=== PATIENT | female | born 1995 | race Caucasian/White ===

== ENCOUNTER 2017-11-19 10:04 | Emergency (ER) | payer OTHER ==
--- NOTE | 2017-11-19 10:46 | ERPHSYRPT ---
- History of Present Illness Time Seen by Provider: 11/19/17 10:39 Source: patient Exam Limitations: no limitations Physician History: vaginal abcess spontaneously drained earlier today, mild ache, no vaginal bleeding, no NV, no fever, hx 5 months , no abdominal pain or contractions Allergies/Adverse Reactions: No Known Drug Allergies Allergy (Unverified 06/27/16 20:01) Hx Tetanus, Diphtheria Vaccination/Date Given: Yes Hx Influenza Vaccination/Date Given: No Hx Pneumococcal Vaccination/Date Given: No - Review of Systems Constitutional: No Fever Respiratory: No Dyspnea Abdominal/Gastrointestinal: No Abdominal Pain Musculoskeletal: No Injury Skin: No Rash Neurological: No Dizziness - Past Medical History Pertinent Past Medical History: No Other Medical History: MRSA skin - Past Surgical History Past Surgical History: No - Social History Smoking Status: Current every day smoker How long have you smoked: YRS Exposure to second hand smoke: No Drug Use: none Patient Lives Alone: No - Physical Exam General Appearance: no apparent distress Respiratory Exam: No respiratory distress Gastrointestinal/Abdomen Exam: soft, other (fht 140), No tenderness Pelvic Exam: normal external exam, other (no fluc mass or lesion, no blood), No vaginal discharge Extremity Exam: normal inspection, normal range of motion Neurologic Exam: alert, oriented x 3, cooperative - Course Nursing assessment & vital signs reviewed: Yes - Progress Progress: unchanged Progress Note: 11/19/17 10:47 continue care and vitamins, keflex, tylenol, sitz bathes Discussed with : Other (Dr Verdugo) Will see patient in: office - Departure Time of Disposition: 10:48 Departure Disposition: Home Clinical Impression: Abscess Condition: Stable Critical Care Time: No Referrals: APPLE CORBETT [Primary Care Provider] - Instructions: Wound Infection Prescriptions: Cephalexin Mh 500 mg [Keflex 500 mg] 1 cap PO QID #40 capsule
[2017-11-19 10:47] VITALS: O2SAT 100
[2017-11-19 10:56] VITALS: BP 118/76; PULSE 72
== END 2017-11-19 10:56 | disposition home or self-care (01) ==
LOC: ED 10:04
DX: O23.592 Infection of other part of genital tract in pregnancy, second trimester (principal)
CPT/HCPCS: 99283

== ENCOUNTER 2022-11-13 12:57 | Emergency (ER) | payer OTHER ==
[2022-11-13 13:11] VITALS: BP 123/74
--- NOTE | 2022-11-13 13:21 | ERPHSYRPT ---
- History of Present Illness Time Seen by Provider: 11/13/22 13:20 Historian: patient Exam Limitations: no limitations Patient Subjective Stated Complaint: pt here for abd pain to lower and and right upper quad since this am, with some nausea and chills Triage Nursing Assessment: pt alert, walked in, face mask in place, resp easy, skin w/d/p. no edema abd soft Physician History: Abdomninal pain for a few hours, already better, cramps, no fever or other specific sx. Prior amairani. Timing/Duration: today Activities at Onset: none Quality: cramping Abdominal Pain Onset Location: generalized abdomen Pain Radiation: no radiation Severity of Pain-Max: moderate Severity of Pain-Current: mild Modifying Factors: Improves With: nothing Associated Symptoms: denies symptoms Previous symptoms: no prior history Allergies/Adverse Reactions: Sulfa (Sulfonamide Antibiotics) Adverse Reaction (Unknown, Verified 11/13/22 13:08) Pt states her mother almost twice from Sulfa so she does not want to take a chance Home Medications: Venlafaxine HCl 37.5 mg [Effexor 37.5 mg] 37.5 mg PO DAILY 11/13/22 [History] Hx Tetanus, Diphtheria Vaccination/Date Given: Yes Hx Influenza Vaccination/Date Given: No Hx Pneumococcal Vaccination/Date Given: No Immunizations Up to Date: Yes Travel Risk - International Travel Have you traveled outside of the country in past 3 weeks: No - Coronavirus Screening Are you exhibiting any of the following symptoms?: No Close contact with a COVID-19 positive Pt in past 14-21 Days: No - Vaccine Status Have you recieved a Covid-19 vaccination: No - Review of Systems Constitutional: No Symptoms Eyes: No Symptoms Ears, Nose, & Throat: No Symptoms Respiratory: No Symptoms Cardiac: No Symptoms Abdominal/Gastrointestinal: Abdominal Pain Genitourinary Symptoms: No Symptoms Musculoskeletal: No Symptoms Skin: No Symptoms Neurological: No Symptoms Psychological: No Symptoms Endocrine: No Symptoms Hematologic/Lymphatic: No Symptoms Immunological/Allergic: No Symptoms All Other Systems: Reviewed and Negative - Past Medical History Pertinent Past Medical History: Yes Neurological History: No Pertinent History ENT History: No Pertinent History Cardiac History: No Pertinent History Respiratory History: Asthma Endocrine Medical History: No Pertinent History Musculoskeletal History: Fractures GI Medical History: GERD, Gallbladder Disease History: No Pertinent History Psycho-Social History: Depression Female Reproductive Disorders: No Pertinent History Other Medical History: fx bilat arms, nose; mono - Past Surgical History Past Surgical History: Yes Neuro Surgical History: No Pertinent History Cardiac: No Pertinent History Respiratory: No Pertinent History Gastrointestinal: Cholecystectomy Genitourinary: No Pertinent History Musculoskeletal: No Pertinent History Female Surgical History: Tubal Ligation - Social History Smoking Status: Former smoker How long have you smoked: YRS Exposure to second hand smoke: No Drug Use: none Patient Lives Alone: No - Female History Hx Last Menstrual Period: september Hx Now: No - Nursing Vital Signs Nursing Vital Signs: Initial Vital Signs Temperature 97.6 F 11/13/22 13:10 Pulse Rate 90 11/13/22 13:10 Respiratory Rate 18 11/13/22 13:10 Blood Pressure 123/74 11/13/22 13:10 O2 Sat by Pulse Oximetry 99 11/13/22 13:10 Pain Scale Pain Intensity 4 - Physical Exam General Appearance: mild distress Eye Exam: PERRL/EOMI Ears, Nose, Throat Exam: normal ENT inspection, TM abnormal (L) Neck Exam: normal inspection, non-tender Respiratory Exam: normal breath sounds Cardiovascular Exam: regular rate/rhythm, normal heart sounds Gastrointestinal/Abdomen Exam: soft, normal bowel sounds, tenderness (mild, generalized) Pelvic Exam: deferred Rectal Exam: deferred Back Exam: normal inspection Extremity Exam: normal inspection Neurologic Exam: alert, oriented x 3 Skin Exam: normal color, warm SpO2 Interpretation: normal SpO2: 99 O2 Delivery: Room Air - Course Nursing assessment & vital signs reviewed: Yes - CT Exams Abdomen/Pelvis CT Interpretation: Negative, Tele-radiologist Report Ordered Tests: Active Orders 24 hr Category Date Time Status ABDOMEN AND PELVIS W/0 CONTRAS [CT] Stat Exams 11/13/22 14:29 Completed AMYLASE Stat Lab 11/13/22 13:50 Completed CBC W DIFF Stat Lab 11/13/22 13:50 Completed CMP Stat Lab 11/13/22 13:50 Completed HCG QUALITATIVE, SERUM Stat Lab 11/13/22 13:50 Completed LIPASE Stat Lab 11/13/22 13:50 Completed UA W/RFX UR CULTURE Stat Lab 11/13/22 14:13 Completed Lab/Rad Data: Laboratory Result Diagrams 11/13/22 13:50 11/13/22 13:50 Laboratory Results 04/11/13/22 11/13/22 Range/Units 14:13 13:50 13:50 WBC (4.0-10.5) x10^3/uL RBC (4.1-5.4) x10^6/uL Hgb (12.0-16.0) g/dL Hct (35-47) % MCV (78-100) fL MCH (26-32) pg MCHC (32-36) g/dL RDW (11.5-14.0) % Plt Count (150-450) x10^3/uL MPV (7.5-11.0) fL Gran % (36.0-66.0) % Immature Gran % (Auto) (0.00-0.4) % Nucleat RBC Rel Count (0.00-0.1) % Eos # (Auto) (0-0.5) x10^3/uL Immature Gran # (Auto) (0.00-0.03) x10^3u/L Absolute Lymphs (auto) (1.0-4.6) x10^3/uL Absolute Monos (auto) (0.0-1.3) x10^3/uL Absolute Nucleated RBC (0.00-0.01) x10^3u/L Lymphocytes % (24.0-44.0) % Monocytes % (0.0-12.0) % Eosinophils % (0.00-5.0) % Basophils % (0.0-0.4) % Absolute Granulocytes (1.4-6.9) x10^3/uL Basophils # (0-0.4) x10^3/uL Sodium 138 (137-145) mmol/L Potassium 3.7 (3.5-5.1) mmol/L Chloride 105 (98-107) mmol/L Carbon Dioxide 27 (22-30) mmol/L Anion Gap 10.0 (5-15) MEQ/L BUN 11 (7-17) mg/dL Creatinine 0.58 (0.52-1.04) mg/dL Estimated GFR > 60.0 ML/MIN Glucose 92 (74-106) mg/dL Calcium 8.8 (8.4-10.2) mg/dL Total Bilirubin 0.70 (0.2-1.3) mg/dL AST 28 (14-36) U/L ALT 28 (0-35) U/L Alkaline Phosphatase 104 (38-126) U/L Serum Total Protein 7.3 (6.3-8.2) g/dL Albumin 4.0 (3.5-5.0) g/dL Amylase 56 (30-110) U/L Lipase 44 (23-300) U/L Serum HCG, Qual NEGATIVE (NEGATIVE) Urine Color Yellow (Yellow) Urine Appearance Clear (Clear) Urine pH 7.0 (4.6-8.0) Ur Specific [place] 1.025 (1.005-1.030) Urine Protein Negative (Negative) Urine Glucose (UA) Negative (Negative) mg/dL Urine Ketones Negative (Negative) Urine Blood Negative (Negative) Urine Nitrite Negative (Negative) Urine Bilirubin Negative (Negative) Urine Urobilinogen 1.0 A (0.2) mg/dL Ur Leukocyte Esterase Negative (Negative) U Hyaline Cast (Auto) NONE SEEN (0-2) /LPF Urine Microscopic RBC 11-20 A (0-5) /HPF Urine Microscopic WBC 0-2 (0-5) /HPF Ur Epithelial Cells Rare (None Seen) /HPF Urine Bacteria None Seen (None Seen) /HPF Urine Culture Reflexed NO (NO) 11/13/22 Range/Units 13:50 WBC 9.7 (4.0-10.5) x10^3/uL RBC 4.43 (4.1-5.4) x10^6/uL Hgb 12.3 (12.0-16.0) g/dL Hct 37.7 (35-47) % MCV 85.1 (78-100) fL MCH 27.8 (26-32) pg MCHC 32.6 (32-36) g/dL RDW 12.9 (11.5-14.0) % Plt Count 238 (150-450) x10^3/uL MPV 10.0 (7.5-11.0) fL Gran % 76.6 H (36.0-66.0) % Immature Gran % (Auto) 0.4 (0.00-0.4) % Nucleat RBC Rel Count 0.0 (0.00-0.1) % Eos # (Auto) 0.14 (0-0.5) x10^3/uL Immature Gran # (Auto) 0.04 H (0.00-0.03) x10^3u/L Absolute Lymphs (auto) 1.53 (1.0-4.6) x10^3/uL Absolute Monos (auto) 0.52 (0.0-1.3) x10^3/uL Absolute Nucleated RBC 0.00 (0.00-0.01) x10^3u/L Lymphocytes % 15.8 L (24.0-44.0) % Monocytes % 5.4 (0.0-12.0) % Eosinophils % 1.4 (0.00-5.0) % Basophils % 0.4 (0.0-0.4) % Absolute Granulocytes 7.41 H (1.4-6.9) x10^3/uL Basophils # 0.04 (0-0.4) x10^3/uL Sodium (137-145) mmol/L Potassium (3.5-5.1) mmol/L Chloride (98-107) mmol/L Carbon Dioxide (22-30) mmol/L Anion Gap (5-15) MEQ/L BUN (7-17) mg/dL Creatinine (0.52-1.04) mg/dL Estimated GFR ML/MIN Glucose (74-106) mg/dL Calcium (8.4-10.2) mg/dL Total Bilirubin (0.2-1.3) mg/dL AST (14-36) U/L ALT (0-35) U/L Alkaline Phosphatase (38-126) U/L Serum Total Protein (6.3-8.2) g/dL Albumin (3.5-5.0) g/dL Amylase (30-110) U/L Lipase (23-300) U/L Serum HCG, Qual (NEGATIVE) Urine Color (Yellow) Urine Appearance (Clear) Urine pH (4.6-8.0) Ur Specific [place] (1.005-1.030) Urine Protein (Negative) Urine Glucose (UA) (Negative) mg/dL Urine Ketones (Negative) Urine Blood (Negative) Urine Nitrite (Negative) Urine Bilirubin (Negative) Urine Urobilinogen (0.2) mg/dL Ur Leukocyte Esterase (Negative) U Hyaline Cast (Auto) (0-2) /LPF Urine Microscopic RBC (0-5) /HPF Urine Microscopic WBC (0-5) /HPF Ur Epithelial Cells (None Seen) /HPF Urine Bacteria (None Seen) /HPF Urine Culture Reflexed (NO) - Progress Progress: improved Progress Note: 11/13/22 17:05 Work-up unremarkable, a small amount of blood in urine, but no obvious infection, CT neg, she is feeling better, try OTC med, see PCP prn Medical Desision Making - Diagnostic Testing Diagnostic test were ordered, analyzed, and reviewed by me: Yes Radiological Interpretation: Teleradiologist Report - Risk of complications Minimal Risk: Minimal risk of morbidity - Departure Departure Disposition: Home Clinical Impression: Abdominal pain Qualifiers: Abdominal location: generalized Qualified Code(s): R10.84 - Generalized abdominal pain Condition: Stable Critical Care Time: No Referrals: PHILIP ALLRED [Primary Care Provider] - Follow up/PCP as directed Instructions: Severe Abdominal Pain, Adult (DC) Additional Instructions: OTC med as helpful, contact PCP if pain persists.
[2022-11-13 13:51] LABS: Absolute Neutrophil Ct (ANC) 7.41 x10^3/uL (1.4-6.9); BASOPHIL % 0.4 % (0.0-0.4); Basophil (Absolute #) 0.04 x10^3/uL (0-0.4); Eosinophil % 1.4 % (0.00-5.0); Eosinophil (Absolute #) 0.14 x10^3/uL (0-0.5); Hematocrit 37.7 % (35-47); Hemoglobin 12.3 g/dL (12.0-16.0); IMMATURE GRAN # 0.04 x10^3u/L (0.00-0.03); IMMATURE GRAN % 0.4 % (0.00-0.4); Lymphocyte (Absolute #) 1.53 x10^3/uL (1.0-4.6); Lymphocytes % 15.8 % (24.0-44.0); Mean Cell Volume 85.1 fL (78-100); Mean Corpuscular Hemoglobin 27.8 pg (26-32); Mean Corpuscular Hgb Concent. 32.6 g/dL (32-36); Monocyte (Absolute #) 0.52 x10^3/uL (0.0-1.3); Monocytes % 5.4 % (0.0-12.0); Neutrophil % 76.6 % (36.0-66.0); Platelet Count 238 x10^3/uL (150-450); Red Blood Count 4.43 x10^6/uL (4.1-5.4); Red Cell Distribution Width 12.9 % (11.5-14.0); White Blood Count 9.7 x10^3/uL (4.0-10.5)
[2022-11-13 14:04] LABS: HCG SERUM TEST NEGATIVE (NEGATIVE)
[2022-11-13 14:06] LABS: ALKALINE PHOSPHATASE 104 U/L (38-126); AMYLASE 56 U/L (30-110); BLOOD UREA NITROGEN 11 mg/dL (7-17); CHLORIDE 105 mmol/L (98-107); Calcium 8.8 mg/dL (8.4-10.2); Carbon Dioxide 27 mmol/L (22-30); Creatinine 1 0.58 mg/dL (0.52-1.04); EST GLOMERULAR FILTRATION RATE > 60.0 ML/MIN; Glucose 92 mg/dL (74-106); LIPASE 44 U/L (23-300); Potassium 3.7 mmol/L (3.5-5.1); SGOT/AST 28 U/L (14-36); SGPT/ALT 28 U/L (0-35); SODIUM 138 mmol/L (137-145); Total Protein 7.3 g/dL (6.3-8.2)
[2022-11-13 14:15] LABS: Appearance Clear (Clear); Bilirubin Negative (Negative); Blood Negative (Negative); Glucose, Urine Negative (Negative); Ketones Negative (Negative); Leukocyte Esterase Negative (Negative); Nitrite Negative (Negative); Protein,Urine Dip Negative (Negative); Specific Gravity 1.025 (1.005-1.030)
[2022-11-13 14:24] LABS: ADD URINE CULTURE? NO (NO); Bacteria None Seen /HPF (None Seen); Epithelial Cells Rare /HPF (None Seen); Hyaline Casts NONE SEEN /LPF (0-2); WBC 0-2 /HPF (0-5)
--- NOTE | 2022-11-13 16:19 | XRAY ---
CLINICAL HISTORY:Abdomen Pain; COMPARISON:03/15/2020; TECHNIQUES:Multiplanar, non-contrast CT of abdomen and pelvis performed with coronal and saggital reconstruction. CTDI: 12.89 DLP: 692.34; FINDINGS: Lower chest. small hiatus hernia, interval new finding. Lung bases are clear. No pleural or pericardial effuion. Status post cholecystectomy, interval new findings. Both kidneys are normal in size and shape. No calculus, cyst or hydronephrosis seen bilaterally. Both ureters are normal in calibre with no stones. Urinary bladder appears unremarkable with no stone. Within the limitations of the unenhanced study, liver, pancreas, adrenal glands and spleen appear unremarkable. Few non-complicated colonic diverticuli noted (interval new finding). OTherwise bowel loops appear unremarkable. No intra-abdominal collection, pneumoperitoneum, enlarged lymph nodes noted. Bones appear unremarkable. No definite adnexal masses detected, ultrasound can help in further evaluation. IMPRESSION: 1. Small hiatus hernia, interval new finding. 2. Few non-complicated colonic diverticuli noted (interval new finding). Otherwise, bowel loops appear unremarkable. 3. Status post cholecystectomy, interval new finding. 4. No definite adnexal masses detected, ultrasound can help in further evaluation. Electronically Signed by: Siobhan Brenner MD. (11/13/2022 15:16:30 RIGGING UP MAN)
[2022-11-13 17:15] VITALS: PULSE 78; O2SAT 97
== END 2022-11-13 17:15 | disposition home or self-care (01) ==
LOC: ED 12:57
DX: R10.84 Generalized abdominal pain (principal); Z79.899 Other long term (current) drug therapy; Z28.310 Unvaccinated for COVID-19
CPT/HCPCS: 36415; 74176; 80053; 81001; 82150; 83690; 84703; 85025; 99283

== ENCOUNTER 2024-11-11 06:17 | Day surgery (SDC) | payer OTHER ==
[2024-11-11] MEDS: Lactated Ringers 1,000 ML IV SCH (06:33)
[2024-11-11 06:34] LABS: HCG URINE TEST NEGATIVE (NEGATIVE)
[2024-11-11] MEDS ORDERED: Versed 2 MG/2 ML Injection ONE (08:09)
[2024-11-11] MEDS ORDERED: propofoL IV ONE ×2 (08:10→08:25)
[2024-11-11] MEDS ORDERED: Xylocaine-Mpf 2% 5 Ml Vial ONE (08:10)
[2024-11-11 08:55] VITALS: PULSE 74
[2024-11-11 09:03] VITALS: BP 115/76; RESP 18; TEMP 97.4; O2SAT 99
--- NOTE | 2024-11-12 12:32 | OP ---
SURGERY DATE/TIME: 11/11/2024 08:00 - 08:24 PREOPERATIVE DIAGNOSIS: Gastritis, reflux, and aspiration. POSTOPERATIVE DIAGNOSIS: 1) Mild gastritis. 2) Hiatal hernia. 3) Esophagitis. PROCEDURE: Esophagogastroduodenoscopy with cold forceps biopsy of the gastric antrum and the EG junction. SURGEON: Marin Gupta MD ANESTHESIA: Medication given by the anesthesia department. INDICATIONS: The patient is a 29-year-old white female who reports she has had years of issues with reflux. She reports that she also has reflux in the night where she wakes up choking where she has aspirated. She has a previous history of pneumonia. She reports this has been going on for about 3 years. She is unaware of which medication she has been taking, the [id number] medications. Mylanta gives her some relief. The patient is felt to need to have endoscopic evaluation. She was apprised of the risks of the procedure including risks of perforation, phlebitis, untoward reaction to medication, bleeding, and missed lesions. The patient verbalized her understanding and desired to have procedure performed. DESCRIPTION OF PROCEDURE AND FINDINGS: The patient was given medication by the anesthesia department. She had continuous pulse oximetry, ECG monitoring, and intermittent blood pressure monitoring during the examination. She was placed in left lateral decubitus position. A bite block was placed, and flexible Olympus gastroscope was used to intubate the oropharynx. The view of the larynx was normal. The scope was easily introduced into the esophagus which was normal to approximately 7 cm from the EG junction where there was noted to be esophagitis. Biopsies were taken from the EG junction to rule out Pearson's-type metaplasia. Hiatal hernia was also noted in this area. The scope was passed into the stomach where normal gastric rugal folds were seen. The gastric berman was suctioned dry, and the stomach was re-insufflated. The gastric rugal folds distended nicely with insufflation of air. The scope was passed along the greater curvature of the stomach to the antrum. Pylorus was encountered and intubated. Duodenum was inspected and found to be essentially normal. Scope was withdrawn toward the stomach again and biopsies were obtained using cold biopsy forceps in the gastric antrum to rule out the presence of Helicobacter pylori-type organisms. The scope was then removed. The patient tolerated the procedure well and sent back to outpatient recovery in good condition.
== END 2024-11-11 09:07 | disposition home or self-care (01) ==
LOC: SDC 06:17
PROVIDERS: ATTEND Family Medicine
DX: K29.70 Gastritis, unspecified, without bleeding (principal); K21.9 Gastro-esophageal reflux disease without esophagitis; T17.918A Gastric contents in respiratory tract, part unspecified causing other injury, initial encounter; K44.9 Diaphragmatic hernia without obstruction or gangrene; K20.90 Esophagitis, unspecified without bleeding
CPT/HCPCS: 81025; J2250; J2704